=== PATIENT | female | born 1960 | race Two or more races ===

== ENCOUNTER 2018-01-30 15:17 | Emergency (ER) | payer SELFPAY ==
[~2018-01-30] VITALS: Ht 154.9 cm; Wt 68.0 kg
[2018-01-30 17:48] LABS: BASOPHILS % 0.9 % (0.0-2.0); EOSINOPHILS % 0.3 % (0.0-5.0); HEMATOCRIT. 43.8 % (36.0-48.0); HEMOGLOBIN. 14.1 g/dL (12.0-16.0); LYMPHOCYTES % 31.9 % (20.0-50.0); MEAN CORPUSCULAR HEMOGLOBIN 28.4 pg (28.0-32.0); MEAN CORPUSCULAR VOLUME 88.1 fL (81.0-99.0); MEAN PLATELET VOLUME 8.3 fl (7.4-10.4); MONOCYTES % 5.7 % (2.0-8.0); NEUTROPHILS % 61.2 % (40.0-76.0); PLATELET 277 x1000/uL (130-400); RED BLOOD CELL COUNT 4.97 mill/uL (4.2-5.4); RED CELL DISTRIBUTION WIDTH 17.1 % (11.6-14.6)
[2018-01-30 17:50] LABS: PROTHROMBIN TIME 10.3 sec (9.1-11.1)
[2018-01-30 17:54] LABS: CHLORIDE 111 mEq/L (98-107)
[2018-01-30 18:33] VITALS: BP 154/97
== END 2018-01-30 19:50 | disposition home or self-care (01) ==
LOC: ER 15:17 → CANBEDREQ 20:08
DX: I63.9 Cerebral infarction, unspecified (principal); I10 Essential (primary) hypertension
CPT/HCPCS: 36415; 71045; 84484; 93005; 99285